=== PATIENT | male | born 1960 | race Caucasian/White ===

== ENCOUNTER 2020-02-05 10:48 | Inpatient (IN) | payer OTHER ==
[~2020-02-05] VITALS: Ht 182.9 cm; Wt 109.8 kg
[2020-02-05 11:11] LABS: BASOPHILS # (AUTO) 0.1 /CMM (0.0-0.2); BASOPHILS % (AUTO) 1.3 % (0.0-2.0); EOSINOPHILS % (AUTO) 10.9 % (0.0-6.0); HEMATOCRIT 45 % (39-51); HEMOGLOBIN 14.8 g/dL (13.5-17.5); LYMPHOCYTES # (AUTO) 1.8 /CMM (0.8-4.8); LYMPHOCYTES % (AUTO) 30.8 % (20.0-44.0); MEAN CORPUSCULAR HGB CONC 33 g/dl (31.0-36.0); MEAN CORPUSCULAR VOLUME 94 fL (80-96); MONOCYTES # (AUTO) 0.5 /CMM (0.1-1.30); MONOCYTES % (AUTO) 8.5 % (2.0-12.0); NEUTROPHILS # (AUTO) 2.8 /CMM (1.8-8.9); NEUTROPHILS % (AUTO) 48.5 % (43.0-81.0); PLATELET COUNT (AUTO) 257 /CMM (150-450); RED BLOOD CELL COUNT(AUTO) 4.77 MIL/uL (4.5-6.0); WHITE BLOOD COUNT (AUTO) 5.8 K/uL (4.3-11.0)
[2020-02-05 11:21] LABS: CALCIUM, SERUM 8.9 mg/dL (8.5-10.1); CARBON DIOXIDE 28 mmol/L (21-32); CHLORIDE 103 mmol/L (98-107); GLUCOSE 105 mg/dL (74-106); POTASSIUM 3.9 mmol/L (3.5-5.1); SODIUM SERUM 139 mmol/L (136-145); UREA NITROGEN, BLOOD 16 mg/dL (7-18)
--- NOTE | 2020-02-05 11:22 | NUR ---
SOB, CHEST PRESSURE X 1 MONTH WORST X 5 DAYS. PT AAOX4, VSS. RR EVEN & UNLABORED. DENIES DIZZINESS, N/V, WEAKNESS AT THIS TIME. PT SEEN & EVAL'D BY DR. RAO. PLACED ON RECOVERY AUDITOR, SR. WILL CONT TO MONITOR.
[2020-02-05 11:34] LABS: ALANINE AMINOTRANSFERASE 35 U/L (12-78); ALKALINE PHOSPHATASE 106 U/L (46-116); ASPARTATE AMINOTRANSFERASE 19 U/L (15-37); B-TYPE NATRIURETIC PEPTIDE 112 PG/ML (0-125); BILIRUBIN,DIRECT 0.2 mg/dL (0.0-0.2); BILIRUBIN,TOTAL 0.9 mg/dL (0.2-1.0); TOTAL PROTEIN, SERUM 7.4 g/dL (6.4-8.2)
--- NOTE | 2020-02-05 11:47 | NUR ---
PER ADMITTING, ATTEMPTING TO RECEIVE AUTH TO ADMIT FROM INSURANCE
[2020-02-05] MEDS ORDERED: BENA1TAB17 PO (11:48)
[2020-02-05] MEDS ORDERED: AMLO5TAB9 PO (11:48)
[2020-02-05] MEDS ORDERED: ATOR10TA PO (11:48)
[2020-02-05] MEDS ORDERED: predniSONE 50 MG TABLET PO ONE (12:00)
[2020-02-05] MEDS ORDERED: predniSONE 10 MG TABLET ONE (12:02)
[2020-02-05] MEDS ORDERED: predniSONE 20 MG TABLET ONE (12:03)
--- NOTE | 2020-02-05 12:11 | NUR ---
BED 118-2
[2020-02-05] MEDS ORDERED: ALBUTEROL SULFATE INH 18 GM HFA.AER.AD IH PRN (12:30)
--- NOTE | 2020-02-05 12:39 | NUR ---
ECHO CARDIOGRAM DONE AT BEDSIDE
--- NOTE | 2020-02-05 12:58 | NUR ---
REPORT GIVEN TO ALESSANDRO AGGARWAL FOR JOEL
--- NOTE | 2020-02-05 13:24 | NUR ---
PT TRANSPORTED TO UNIT ON [facility] WITH EMT AND RN AT BEDSIDE W/ ACLS PROTOCOL. NAD NOTED. DURING TRANSPORT. PT AMBULATED FROM [facility] TO HIS BED ON STE[facility]Y GAIT
[2020-02-05] MEDS: ASPIRIN 81 MG TAB.CHEW PO SCH (13:58)
[2020-02-05] MEDS: ENOXAPARIN SODIUM 100 MG/ML DISP.SYRIN SQ SCH (14:00)
[2020-02-05] MEDS ORDERED: HOME MED MISCELLANEOUS XX SCH (15:00)
[2020-02-05] MEDS: HYDROCHLOROTHIAZIDE 25 MG TABLET PO SCH (15:08)
[2020-02-05] MEDS: BENAZEPRIL HCL 10 MG TABLET PO SCH (15:08)
--- NOTE | 2020-02-05 15:25 | NUR ---
covid swab rapid specimen obtained and brought and logged specimen to the lab,will folllowup results.
--- NOTE | 2020-02-05 15:58 | NUR ---
followup result of covid rapid test still pending lab.
--- NOTE | 2020-02-05 16:27 | NUR ---
PATIENT SIGNED CONSENT FOR CTA,G 18 LEFT AC PATENT,STILL COVID RAPID RESULT PENDING.
--- NOTE | 2020-02-05 16:39 | NUR ---
DR. PRICE NOTIFIED PATIENT COVID NEGATIVE PER RAPID TEST.
[2020-02-05] MEDS ORDERED: CT SWABBABLE VALVE TRANS SET 1 EA INFUS.SET MC ONE (16:53)
[2020-02-05] MEDS ORDERED: IV NS 0.9% 250 ML IV ONE (16:53)
[2020-02-05] MEDS ORDERED: IOHEXOL-350 100 ML VIAL IV ONE (16:53)
[2020-02-05] MEDS ORDERED: METOPROLOL TARTRATE INJ 5 MG/5 ML AMPUL ONE (17:20)
[2020-02-05] MEDS: METOPROLOL TARTRATE INJ 5 MG/5 ML AMPUL IVP PRN ×3 (17:23→17:33)
[2020-02-05] MEDS ORDERED: NITROGLYCERIN 4.9 GM SPRAY SL PRN (17:30)
[2020-02-05] MEDS ORDERED: ATORVASTATIN 10 MG TABLET PO SCH (18:00)
[2020-02-05] MEDS: IPRATROPIUM/ALBUTEROL INHALER IH SCH (18:27)
--- NOTE | 2020-02-05 19:25 | NUR ---
RN NOTE RECEIVED PATIENT IN BED RESTING, WATCHING TV. A&O X4. ABLE TO MAKE NEEDS KNOWN, SPEECH IS CLEAR. BREATHING IS EVEN AND NON LABORED ON ROOM AIR. ON ISOLATION FOR R/O COVID. IV SITE ON LAC GAUGE 18 IS CLEAN, DRY, AND PATENT. CONTINENT OF BOWEL AND BLADDER. URINAL AT BEDSIDE. IN NO APPARENT DISTRESS NOTED AT THIS TIME. NO COMPLAINTS OF PAIN AT THIS TIME. CALL LIGHT IS WITHIN EASY REACH. WILL CONTINUE TO MONITOR.
[2020-02-05 20:00] VITALS: BP 117/80
[2020-02-06] MEDS: ENOXAPARIN SODIUM 100 MG/ML DISP.SYRIN SQ SCH (00:03)
--- NOTE | 2020-02-06 00:05 | NUR ---
RN NOTE PATIENT REFUSED 12 AM VITALS AT THIS TIME. PATIENT IS A&O X4. NO PAIN AND NO APPARENT DISTRESS NOTED. PATIENT REQUESTED TO BE LEFT ALONE TO SLEEP. CALL LIGHT IS WITHIN EASY REACH. WILL CONTINUE TO MONITOR.
--- NOTE | 2020-02-06 04:05 | NUR ---
RN NOTE PATIENT REFUSED 4 AM VITALS, PER PATIENT REQUEST, HE WOULD LIKE TO NOT BE AWAKEN AT THIS TIME. PATIENT IS A&O X4. WILL CONTINUE TO MONITOR.
[2020-02-06] MEDS: IPRATROPIUM/ALBUTEROL INHALER IH SCH ×3 (06:26→14:56)
--- NOTE | 2020-02-06 07:38 | NUR ---
RN NOTE PATIENT REMAINED STABLE THROUGHOUT THE NIGHT. NO SIGNIFICANT CHANGES NOTED. ENDORSED TO AM SHIFT RN FOR CONTINUATION OF CARE.
[2020-02-06 08:00] VITALS: BP 132/80
--- NOTE | 2020-02-06 08:00 | NUR ---
ART SPECIALIST NOTE PATIENT IN BED ALL NEEDS ATTENDED, ON TELE MONITOR SR SB HR 60 AT THIS TIME , ARMANDO HL INTACT AND FLUSHED WELL , SEEN BY DR SCOTT , PLAN OF CARE DISCUSSED WITH PATIENT, NO SOB NOTED AT THIS TIME ,ON RA
[2020-02-06] MEDS: BENAZEPRIL HCL 10 MG TABLET PO SCH (08:08)
[2020-02-06] MEDS: HYDROCHLOROTHIAZIDE 25 MG TABLET PO SCH (08:09)
[2020-02-06] MEDS: ASPIRIN 81 MG TAB.CHEW PO SCH (08:09)
[2020-02-06] MEDS ORDERED: AMLODIPINE BESYLATE 5 MG TABLET PO SCH (09:00)
--- NOTE | 2020-02-06 10:00 | NUR ---
TELE R NOTE PATIENT IN BED ALL NEEDS ATTENDED, ON TELE MONITOR SR SB HR 60 AT THIS TIME , ARMANDO HL INTACT AND FLUSHED WELL , SEEN BY DR SCOTT , PLAN OF CARE DISCUSSED WITH PATIENT, NO SOB NOTED AT THIS TIME ,ON RA
--- NOTE | 2020-02-06 11:49 | NUR ---
STREET VENDOR NOTE ROUNDS MADE, ALL NEEDS ATTENDED, NOT IN DISTRESS, WILL MONITOR
[2020-02-06 12:00] VITALS: BP 120/78
--- NOTE | 2020-02-06 14:54 | NUR ---
CONCRETE MIXER TRUCK DRIVER NOTE ALL NEEDS ATTENDED ,NOT IN DISTRESS ,WILL MONITOR
[2020-02-06 15:34] LABS: CHOLESTEROL 171 mg/dL (<200); HDL CHOLESTEROL 41 mg/dL (40-60); LDL 90 mg/dL (0-99); TRIGLYCERIDES 399 mg/dL (30-150)
[2020-02-06 16:00] VITALS: BP 108/78
--- NOTE | 2020-02-06 16:36 | NUR ---
television presenter note encourage patient to ambulated around his room patient to ambulate ,will monitor
--- NOTE | 2020-02-06 17:32 | NUR ---
SELENIUM PLANT OPERATOR NOTES DR CONDE CALLED WITH ORDER OK TO D/C HOME. STATED HE WILL GIVE PRESCRIPTION TO PIGMENT WEIGHER. DISCHARGE INSTRUCTIONS GIVEN, UNDERSTOOD. BELONGINGS SIGNED. TELEMETRY IS REMOVED.
--- NOTE | 2020-02-06 17:45 | NUR ---
Patient is alert,lives alone locally. He is ambulatory and independent with adl's. Mannies dc planning needs Addendum: 02/06/20 at 1831 by BEATRICE NARANJO RN Amended: Links added.
--- NOTE | 2020-02-06 18:08 | NUR ---
STOCK ROLLER NOTE ALL D\C INSTRUCTION GIVEN, UNDERSTOOD, HL REMOVED ON RT AC ,NO BLEEDING NOTED,TAKEN TO LOBBY WITH HORSEBACK EXCAVATOR WITH STABLE CONDITION , ABLE TO WALK TO PARKING LOT , ABLE TO DRIVE ,PER DR CONDE OK TO GO HOME BY DRIVING OWN CAR , WENT HOME WITH STABLE CONDITION
== END 2020-02-06 18:12 | disposition home or self-care (01) | DRG 197 ==
LOC: ER 10:48 → TELE1 12:53
PROVIDERS: ADMIT Internal Medicine; ATTEND Internal Medicine
DX: J67.9 Hypersensitivity pneumonitis due to unspecified organic dust (principal); J45.901 Unspecified asthma with (acute) exacerbation; I10 Essential (primary) hypertension; F17.200 Nicotine dependence, unspecified, uncomplicated; E78.5 Hyperlipidemia, unspecified; F10.10 Alcohol abuse, uncomplicated; Z79.899 Other long term (current) drug therapy; F12.90 Cannabis use, unspecified, uncomplicated; E66.9 Obesity, unspecified; Y90.9 Presence of alcohol in blood, level not specified; Z82.49 Family history of ischemic heart disease and other diseases of the circulatory system
CPT/HCPCS: 36415; 71045-TC; 75574; 80048-TC; 80061-TC; 80076-TC; 83880; 84484-TC; 85025-TC; 85378-TC; 87081-TC; 93307-TC; G0378; J1650; J3490; J7050; Q9967; U0003-CS

== ENCOUNTER 2025-06-18 06:11 | Emergency (ER) | payer MEDICARE ==
[~2025-06-18] VITALS: Ht 182.9 cm; Wt 104.3 kg
[~2025-06-18 06:11] MED LIST: ALBU8.5H8 INH; AMLO-212 PO; ATOR10TA PO; AZIT250T13 PO; BENA1TAB17 PO; PRED50TA PO
[2025-06-18] MEDS ORDERED: Magnesium 1GM/D5W 100ML PREMIX 100 ML IV ONE ×2 (06:48→06:57)
[2025-06-18] MEDS: IV NS 0.9% 1,000 ML BAG IV ONE (06:53)
[2025-06-18] MEDS: Magnesium 1GM/D5W 100ML PREMIX 200 ML IV ONE (06:53)
[2025-06-18] MEDS ORDERED: IPRATROPIUM NEB FS 0.5 MG/2.5 ML AMPUL.NEB ONE (06:56)
[2025-06-18] MEDS ORDERED: ALBUTEROL FS 2.5 MG/3 ML VIAL.NEB ONE (06:56)
[2025-06-18 07:06] VITALS: O2SAT 98
[2025-06-18] MEDS: IPRATROPIUM NEB FS 0.5 MG/2.5 ML AMPUL.NEB NEB ONE (07:06)
[2025-06-18] MEDS: ALBUTEROL FS 2.5 MG/3 ML VIAL.NEB NEB ONE (07:06)
[2025-06-18 08:06] VITALS: O2SAT 99
[2025-06-18] MEDS ORDERED: IPRA12.9 INH (09:12)
[2025-06-18] MEDS ORDERED: ALBU18HF2 INH (09:12)
[2025-06-18] MEDS ORDERED: PRED50TA PO (09:12)
[2025-06-18 09:21] VITALS: BP 148/74; TEMP 98.3; O2SAT 92
== END 2025-06-18 09:22 | disposition home or self-care (01) ==
LOC: ER 06:16
DX: J45.901 Unspecified asthma with (acute) exacerbation (principal); I10 Essential (primary) hypertension; Z79.52 Long term (current) use of systemic steroids; Z79.899 Other long term (current) drug therapy; Z20.822 Contact with and (suspected) exposure to COVID-19
CPT/HCPCS: 99285; 96365; 71045; 96375; 87426; 93005; 94644; J7030; J3475 ×2; J2919